=== PATIENT | male | born 1995 | race American Indian/Alaskan Native ===

== ENCOUNTER 2017-06-21 05:59 | Emergency (ER) | payer OTHER ==
[2017-06-21] MEDS ORDERED: KEPPRA PO ONE (06:42)
[2017-06-21 07:18] LABS: Basophils % (Auto) 0.3 % (0.0-1.8); Eosinophils % (Auto) 0.3 % (0.0-4.3); Hematocrit 43.1 % (35.5-45.6); Hemoglobin 14.7 gm/dl (11.8-15.2); Mean Corpuscular HGB Conc 34 % (32-34); Mean Corpuscular Hemoglobin 31 pg (28-32); Mean Corpuscular Volume 91 fl (84-94); Platelet Count 184 K/mm3 (140-440); Red Blood Count 4.75 M/mm3 (3.65-5.03); Red Cell Distribution Width 12.8 % (13.2-15.2); White Blood Count 6.5 K/mm3 (4.5-11.0)
[2017-06-21 07:32] LABS: Urine Drugs of Abuse Note Disclamer
[2017-06-21 07:36] LABS: Anion Gap 20 mmol/L; BUN/Creatinine Ratio 14; Blood Urea Nitrogen 15 mg/dL (9-20); Carbon Dioxide 25 mmol/L (22-30); Chloride 100.3 mmol/L (98-107); Glucose 93 mg/dL (75-100); Potassium 3.8 mmol/L (3.6-5.0); Sodium 141 mmol/L (137-145)
[2017-06-21 07:44] LABS: Bilirubin,Urine NEG (Negative); Blood,Urine SM (Negative); Ketones,Urine NEG (Negative); Leukocyte Esterase,Urine NEG (Negative); Mucus,Urine FEW /HPF; Nitrite,Urine NEG (Negative); Sperm,Urine FEW /HPF (NP); Urobilinogen,Urine < 2.0 mg/dL (<2.0); WBC,Urine < 1.0 /HPF (0.0-6.0)
--- NOTE | 2017-06-21 07:50 | Emergency Department Report ---
ED General Adult HPI - General Chief complaint: Seizure Stated complaint: SEIZURE Time Seen by Provider: 06/21/17 06:24 Source: patient, EMS Mode of arrival: Stretcher Limitations: No Limitations - History of Present Illness Initial comments: Patient had a single witnessed generalized seizure at home. He states he did not injure himself. He is really back to his baseline now. He presents with a bottle of Keppra. He states he just hasn't been taking it very well. He states he has about 7 left. He has no other complaints at this time. -: minutes(s) Severity scale (0 -10): 0 Consistency: now resolved Improves with: none Worsens with: none Associated Symptoms: denies other symptoms Treatments Prior to Arrival: none - Related Data Previous Rx's Medication Instructions Recorded Last Taken Type levETIRAcetam [Keppra] 500 mg PO BID #60 tablet 06/21/17 Unknown Rx Allergies Allergy/AdvReac Type Severity Reaction Status Date / Time No Known Allergies Allergy Unverified 06/21/17 06:28 ED Review of Systems ROS: Stated complaint: SEIZURE Other details as noted in HPI Constitutional: denies: chills, fever Eyes: denies: eye pain, eye discharge, vision change ENT: denies: ear pain, throat pain Respiratory: denies: cough, shortness of breath, wheezing Cardiovascular: denies: chest pain, palpitations Endocrine: no symptoms reported Gastrointestinal: denies: abdominal pain, nausea, diarrhea Genitourinary: denies: urgency, dysuria Musculoskeletal: denies: back pain, joint swelling, arthralgia Skin: denies: rash, lesions Neurological: as per HPI. denies: headache, weakness, paresthesias Psychiatric: denies: anxiety, depression Hematological/Lymphatic: denies: easy bleeding, easy bruising ED Past Medical Hx - Past Medical History Hx Seizures: Yes - Surgical History Past Surgical History?: No - Social History Smoking Status: Current Every Day Smoker Substance Use Type: Marijuana - Medications Home Medications: Home Medications Medication Instructions Recorded Confirmed Last Taken Type levETIRAcetam [Keppra] 500 mg PO BID #60 tablet 06/21/17 Unknown Rx ED Physical Exam - General Limitations: No Limitations General appearance: alert, in no apparent distress - Head Head exam: Present: atraumatic, normocephalic - Eye Eye exam: Present: normal appearance, PERRL, EOMI. Absent: scleral icterus - ENT ENT exam: Present: mucous membranes moist, other (superficial tongue abrasion) - Neck Neck exam: Present: normal inspection - Respiratory Respiratory exam: Present: normal lung sounds bilaterally. Absent: respiratory distress - Cardiovascular Cardiovascular Exam: Present: regular rate, normal rhythm. Absent: systolic murmur, diastolic murmur, rubs, gallop - GI/Abdominal GI/Abdominal exam: Present: soft, normal bowel sounds. Absent: distended, tenderness, guarding, rebound, rigid - Rectal Rectal exam: Present: deferred - Extremities Exam Extremities exam: Present: normal inspection - Back Exam Back exam: Present: normal inspection - Neurological Exam Neurological exam: Present: alert, oriented X3, CN II-XII intact. Absent: motor sensory deficit - Psychiatric Psychiatric exam: Present: normal affect, normal mood - Skin Skin exam: Present: warm, dry, intact, normal color. Absent: rash ED Course Vital Signs 06/21/17 06/21/17 06/21/17 06:06 06:10 06:14 Temperature 98.5 F Pulse Rate 81 86 Respiratory 12 20 Rate Blood Pressure 118/60 118/60 Blood Pressure [Right] O2 Sat by Pulse 97 98 98 Oximetry 06/21/17 06/21/17 06/21/17 06:15 06:20 06:26 Temperature 98.5 F Pulse Rate 80 91 H 69 Respiratory 14 13 23 Rate Blood Pressure 112/55 101/65 112/55 Blood Pressure 118/60 [Right] O2 Sat by Pulse 96 98 96 Oximetry 06/21/17 06/21/17 06/21/17 06:30 06:36 06:40 Temperature Pulse Rate 85 72 67 Respiratory 18 21 21 Rate Blood Pressure 103/64 103/64 103/64 Blood Pressure [Right] O2 Sat by Pulse 97 96 96 Oximetry 06/21/17 06/21/17 06/21/17 06:45 06:50 06:53 Temperature Pulse Rate 66 89 Respiratory 21 12 9 L Rate Blood Pressure 116/54 116/54 Blood Pressure [Right] O2 Sat by Pulse 94 99 97 Oximetry ED Medical Decision Making - Lab Data Result diagrams: 06/21/17 06:59 06/21/17 06:59 Laboratory Results - last 24 hr 06/21/17 06/21/17 06/21/17 06:59 06:59 07:28 WBC 6.5 RBC 4.75 Hgb 14.7 Hct 43.1 MCV 91 MCH 31 MCHC 34 RDW 12.8 L Plt Count 184 Lymph % (Auto) 19.7 [place] % (Auto) 11.3 H Eos % (Auto) 0.3 Baso % (Auto) 0.3 Lymph # 1.3 [place] # 0.7 Eos # 0.0 Baso # 0.0 Seg Neutrophils % 68.4 Seg Neutrophils # 4.5 Sodium 141 Potassium 3.8 Chloride 100.3 Carbon Dioxide 25 Anion Gap 20 BUN 15 Creatinine 1.1 Estimated GFR > 60 BUN/Creatinine Ratio 14 Glucose 93 Calcium 9.0 Urine Color Yellow Urine Turbidity Clear Urine pH 6.0 Ur Specific [place] 1.021 Urine Protein 100 mg/dl Urine Glucose (UA) Neg Urine Ketones Neg Urine Blood Sm Urine Nitrite Neg Urine Bilirubin Neg Urine Urobilinogen < 2.0 Ur Leukocyte Esterase Neg Urine WBC (Auto) < 1.0 Urine RBC (Auto) 3.0 Hyaline Casts 1 Urine Mucus Few Urine Sperm Few Critical care attestation.: If time is entered above; I have spent that time in minutes in the direct care of this critically ill patient, excluding procedure time. ED Disposition Clinical Impression: Seizure, Seizure disorder Disposition: DC-01 TO HOME OR SELFCARE Is pt being admited?: No Does the pt Need Aspirin: No Condition: Stable Instructions: Epilepsy (ED) Additional Instructions: Follow-up with neurology physician or clinic. Rx Keppra or return any acute change or problems. Do not drive until you are seizure-free for the appropriate. Ankle cleared by a neurologist or your primary care physician. Prescriptions: levETIRAcetam [Keppra] 500 mg PO BID #60 tablet Referrals: PRIMARY MD ESTELITA [Primary Care Provider] - 3-5 Days [facility] [Provider Group] - 3-5 Days Time of Disposition: 07:50
[2017-06-21 08:22] VITALS: BP 108/70
== END 2017-06-21 08:23 | disposition home or self-care (01) ==
LOC: ED 05:59
DX: G40.909 Epilepsy, unspecified, not intractable, without status epilepticus (principal); F17.200 Nicotine dependence, unspecified, uncomplicated; F12.10 Cannabis abuse, uncomplicated
CPT/HCPCS: 36415; 80048; 80307; 81001; 85025; 99284

== ENCOUNTER 2017-08-25 07:45 | Emergency (ER) | payer SELFPAY ==
[2017-08-25 08:05] VITALS: BP 126/88
== END 2017-08-25 08:16 | disposition left against medical advice (07) ==
LOC: ED 07:45
DX: R56.9 Unspecified convulsions (principal); Z53.21 Procedure and treatment not carried out due to patient leaving prior to being seen by health care provider

== ENCOUNTER 2017-09-21 09:32 | Emergency (ER) | payer OTHER ==
[2017-09-21] MEDS ORDERED: KEPPRA 1,000 MG/NS 0.75% 100ML 1,000 MG/100 ML BAG IV ONE (09:59)
[2017-09-21 10:08] LABS: Hematocrit 43.6 % (35.5-45.6); Hemoglobin 14.5 gm/dl (11.8-15.2); Mean Corpuscular HGB Conc 33 % (32-34); Mean Corpuscular Hemoglobin 31 pg (28-32); Mean Corpuscular Volume 92 fl (84-94); Platelet Count 229 K/mm3 (140-440); Red Blood Count 4.73 M/mm3 (3.65-5.03); Red Cell Distribution Width 13.7 % (13.2-15.2)
[2017-09-21 10:58] LABS: BUN/Creatinine Ratio 12; Blood Urea Nitrogen 14 mg/dL (9-20); Calcium 9.2 mg/dL (8.4-10.2); Hemolysis Index 19
--- NOTE | 2017-09-21 11:03 | Emergency Department Report ---
ED General Adult HPI - General Chief complaint: Seizure Stated complaint: SEIZURE Time Seen by Provider: 09/21/17 09:58 Source: patient, family, EMS Mode of arrival: Stretcher Limitations: No Limitations - History of Present Illness Initial comments: The third recent visit for medical noncompliance with his Keppra. Patient states that he did not injure himself. Paramedics tell me that they gave him Zofran because class he vomited. However, he did not appear to have aspirated. He does not complain of nausea now. He has no shortness of breath and no cough. Patient states he is last seizure was in August and that he ran out of Her and then as well. He does not follow-up with anyone. I did see him in June when he presented with a large bottle of Keppra which she was simply noncompliant in taking for a seizure - Related Data Previous Rx's Medication Instructions Recorded Last Taken Type levETIRAcetam [Keppra TAB] 500 mg PO BID #60 tablet 09/21/17 Unknown Rx levETIRAcetam [Keppra] 500 mg PO BID #60 tablet 09/21/17 Unknown Rx Allergies Allergy/AdvReac Type Severity Reaction Status Date / Time No Known Allergies Allergy Unverified 06/21/17 06:28 ED Review of Systems ROS: Stated complaint: SEIZURE Other details as noted in HPI Constitutional: denies: chills, fever Eyes: denies: eye pain, eye discharge, vision change ENT: denies: ear pain, throat pain Respiratory: denies: cough, shortness of breath, wheezing Cardiovascular: denies: chest pain, palpitations Endocrine: no symptoms reported Gastrointestinal: denies: abdominal pain, nausea, diarrhea Genitourinary: denies: urgency, dysuria Musculoskeletal: denies: back pain, joint swelling, arthralgia Skin: denies: rash, lesions Neurological: as per HPI. denies: headache, weakness, paresthesias Psychiatric: denies: anxiety, depression Hematological/Lymphatic: denies: easy bleeding, easy bruising ED Past Medical Hx - Past Medical History Previous Medical History?: Yes Hx Seizures: Yes - Surgical History Past Surgical History?: No - Social History Smoking Status: Current Every Day Smoker Substance Use Type: None - Medications Home Medications: Home Medications Medication Instructions Recorded Confirmed Last Taken Type levETIRAcetam [Keppra TAB] 500 mg PO BID #60 tablet 09/21/17 Unknown Rx levETIRAcetam [Keppra] 500 mg PO BID #60 tablet 09/21/17 Unknown Rx ED Physical Exam - General Limitations: No Limitations General appearance: alert, in no apparent distress - Head Head exam: Present: atraumatic, normocephalic - Eye Eye exam: Present: normal appearance. Absent: scleral icterus - ENT ENT exam: Present: mucous membranes moist, other (superficial tongue abrasion) - Neck Neck exam: Present: normal inspection. Absent: tenderness, meningismus - Respiratory Respiratory exam: Present: normal lung sounds bilaterally. Absent: respiratory distress - Cardiovascular Cardiovascular Exam: Present: regular rate, normal rhythm. Absent: systolic murmur, diastolic murmur, rubs, gallop - GI/Abdominal GI/Abdominal exam: Present: soft, normal bowel sounds. Absent: distended, tenderness, guarding, rebound, rigid - Rectal Rectal exam: Present: deferred - Extremities Exam Extremities exam: Present: normal inspection - Back Exam Back exam: Present: normal inspection - Neurological Exam Neurological exam: Present: alert, oriented X3, CN II-XII intact. Absent: motor sensory deficit - Psychiatric Psychiatric exam: Present: normal affect, normal mood - Skin Skin exam: Present: warm, dry, intact, normal color. Absent: rash ED Course Vital Signs 09/21/17 09:42 Temperature 97.6 F Pulse Rate 65 Respiratory 16 Rate Blood Pressure 113/47 O2 Sat by Pulse 96 Oximetry - Reevaluation(s) Reevaluation #1: IV Keppra observation and disposition. Patient states that he will follow up from now. 09/21/17 11:01 ED Medical Decision Making - Lab Data Result diagrams: 09/21/17 10:00 09/21/17 10:00 Laboratory Results - last 24 hr 09/21/17 09/21/17 10:00 10:00 WBC 7.9 RBC 4.73 Hgb 14.5 Hct 43.6 MCV 92 MCH 31 MCHC 33 RDW 13.7 Plt Count 229 Sodium 137 Potassium 4.6 Chloride 98.2 Carbon Dioxide 20 L Anion Gap 23 BUN 14 Creatinine 1.2 Estimated GFR > 60 BUN/Creatinine Ratio 12 Glucose 142 H Calcium 9.2 Critical care attestation.: If time is entered above; I have spent that time in minutes in the direct care of this critically ill patient, excluding procedure time. ED Disposition Clinical Impression: Seizure, History of seizure disorder, Medical non-compliance Disposition: DC-01 TO HOME OR SELFCARE Is pt being admited?: No Does the pt Need Aspirin: No Condition: Stable Instructions: Epilepsy (ED) Additional Instructions: Do not drive or operate machinery. Follow up care may be obtained at this outside medical clinic or local neurologist. Prescriptions: levETIRAcetam [Keppra] 500 mg PO BID #60 tablet levETIRAcetam [Keppra TAB] 500 mg PO BID #60 tablet Referrals: PRIMARY CAREMD [Primary Care Provider] - 3-5 Days BETTY AVILA MD [Staff Physician] - 3-5 Days [facility] [Provider Group] - 3-5 Days
[2017-09-21 12:37] VITALS: BP 134/87
== END 2017-09-21 12:39 | disposition home or self-care (01) ==
LOC: ED 09:32
DX: G40.909 Epilepsy, unspecified, not intractable, without status epilepticus (principal); F17.200 Nicotine dependence, unspecified, uncomplicated
CPT/HCPCS: 36415; 80048; 82962; 85027; 96365; 99284; J1953

== ENCOUNTER 2017-11-03 11:18 | Emergency (ER) | payer OTHER ==
[2017-11-03 11:28] VITALS: BP 127/76
[2017-11-03] MEDS ORDERED: KEPPRA PO ONE (14:43)
--- NOTE | 2017-11-03 14:48 | Emergency Department Report ---
ED General Adult HPI - General Chief complaint: Medical Clearance Stated complaint: SIEZURES Time Seen by Provider: 11/03/17 14:43 Source: patient Mode of arrival: Ambulatory Limitations: No Limitations - History of Present Illness Initial comments: Patient presents for medication refill. Reports that he has not taken his Keppra medication in 3 days. Reports history of epilepsy. Denies seizure. -: days(s) (3) Consistency: intermittent Associated Symptoms: denies other symptoms - Related Data Previous Rx's Medication Instructions Recorded Last Taken Type levETIRAcetam [Keppra] 500 mg PO BID #60 tablet 09/21/17 Unknown Rx levETIRAcetam [Keppra TAB] 500 mg PO BID #60 tablet 11/03/17 Unknown Rx Allergies Allergy/AdvReac Type Severity Reaction Status Date / Time No Known Allergies Allergy Verified 11/03/17 11:26 ED Review of Systems ROS: Stated complaint: SIEZURES Other details as noted in HPI ED Past Medical Hx - Past Medical History Hx Seizures: Yes - Social History Smoking Status: Current Every Day Smoker Substance Use Type: None - Medications Home Medications: Home Medications Medication Instructions Recorded Confirmed Last Taken Type levETIRAcetam [Keppra] 500 mg PO BID #60 tablet 09/21/17 Unknown Rx levETIRAcetam [Keppra TAB] 500 mg PO BID #60 tablet 11/03/17 Unknown Rx ED Physical Exam - General Limitations: No Limitations - Other Other exam information: GENERAL: Patient in no acute distress HEAD: Normocephalic, atraumatic EYES: PERRLA, EOM intact, no scleral icterus, visual colon and acuity wnl HEART: Regular rate and rhythm, no murmur, S1-S2 are auscultated, pulses are symmetric LUNGS: bilateral breath sounds. No wheezing, rales, rhonchi ABDOMEN: Normal bowel sounds, no tenderness, no rebound, no guarding, no masses , no CVA tenderness MUSCULOSKELETAL: Normal joint range of motion, no redness, no swelling, no tenderness NEUROLOGIC: GCS 15, Alert and Oriented x3, Cranial nerves intact, normal sensation, normal strength, normal gait PSYCHIATRIC: No homicidal or suicidal ideation, no hallucinations SKIN: Skin is warm and dry, no wounds, no rashes ED Course Vital Signs 11/03/17 11:26 Temperature 98.7 F Pulse Rate 58 L Respiratory 16 Rate Blood Pressure 127/76 O2 Sat by Pulse 100 Oximetry ED Medical Decision Making - Medical Decision Making Patient comfortable. Plan discharge with outpatient follow up. Patient agrees with plan and will return if symptoms worsen. Critical care attestation.: If time is entered above; I have spent that time in minutes in the direct care of this critically ill patient, excluding procedure time. ED Disposition Clinical Impression: Medication refill Disposition: DC- TO HOME OR SELFCARE Is pt being admited?: No Condition: Stable Instructions: Epilepsy (ED) Prescriptions: levETIRAcetam [Keppra TAB] 500 mg PO BID #60 tablet Referrals: [facility] [Outside] - 2-3 Days [facility] [Outside] - 2-3 Days KIERA MILTON MD [Staff Physician] - 2-3 Days Time of Disposition: 14:48
== END 2017-11-03 15:36 | disposition home or self-care (01) ==
LOC: ED 11:18
DX: Z76.0 Encounter for issue of repeat prescription (principal); F17.200 Nicotine dependence, unspecified, uncomplicated; G40.909 Epilepsy, unspecified, not intractable, without status epilepticus
CPT/HCPCS: 99282

== ENCOUNTER 2017-12-07 20:39 | Emergency (ER) | payer SELFPAY ==
[2017-12-07 21:08] VITALS: BP 126/42
[2017-12-07] MEDS ORDERED: KEPPRA PO ONE ×2 (21:40→21:43)
[2017-12-07] MEDS ORDERED: BENADRYL IV ONE (22:38)
[2017-12-07] MEDS ORDERED: REGLAN IV ONE (22:38)
[2017-12-07] MEDS ORDERED: TORADOL IV ONE (22:38)
--- NOTE | 2017-12-07 22:43 | Emergency Department Report ---
ED Headache HPI - General Chief Complaint: Headache Stated Complaint: HEADACHE Time Seen by Provider: 12/07/17 22:29 - History of Present Illness Initial Comments: 22-year-old -[place] male with a past medical history seizures that should be on Keppra but has been off of it for the last 5 days comes in for headache 8 out of 10 2 days. Patient admits to nausea no vomiting positive photosensitivity no vision problems reports she's had hot flashes. He reports that he was diagnosed with seizures 02/17/2016 and was in a coma for a few days. He reports that he had a full workup and they do not know the reason why. Patient reports that he does not have a neurologist or primary care provider and comes here often to get his Keppra refill. Timing/Duration: other (2 days) Quality: moderate Associated Symptoms: nausea/vomiting Allergies/Adverse Reactions: Allergies No Known Allergies Allergy (Verified 11/03/17 11:26) Home Medications: Ambulatory Orders levETIRAcetam [Keppra TAB] 500 mg PO BID #60 tablet 11/03/17 levETIRAcetam [Keppra] 500 mg PO BID #60 tablet 12/07/17 ED Review of Systems ROS: Stated complaint: HEADACHE Other details as noted in HPI Constitutional: denies: chills, fever Eyes: denies: eye pain, eye discharge, vision change ENT: denies: ear pain, throat pain Respiratory: denies: cough, shortness of breath, wheezing Cardiovascular: denies: chest pain, palpitations Gastrointestinal: nausea. denies: vomiting Musculoskeletal: denies: back pain, joint swelling, arthralgia Neurological: headache Psychiatric: denies: anxiety, depression Hematological/Lymphatic: denies: easy bleeding, easy bruising ED Past Medical Hx - Past Medical History Previous Medical History?: Yes Hx Seizures: Yes Additional medical history: Takes Keppra - Social History Smoking Status: Light Tobacco Smoker - Medications Home Medications: Home Medications Medication Instructions Recorded Confirmed Last Taken Type levETIRAcetam [Keppra TAB] 500 mg PO BID #60 tablet 11/03/17 Unknown Rx levETIRAcetam [Keppra] 500 mg PO BID #60 tablet 12/07/17 Unknown Rx ED Physical Exam - General Limitations: No Limitations - Respiratory Respiratory exam: Present: normal lung sounds bilaterally. Absent: respiratory distress - Cardiovascular Cardiovascular Exam: Present: regular rate, normal rhythm. Absent: systolic murmur, diastolic murmur, rubs, gallop - Extremities Exam Extremities exam: Present: normal inspection - Back Exam Back exam: Present: normal inspection - Expanded Neurological Exam Expanded Cranial nerves: EOM's Intact: Normal, Gag Reflex: Normal, Tongue Deviation: Normal, Nystagmus: Normal, Facial Sensation: Normal, Facial Palsy with Forehead Movement: Normal, Facial Palsy without Forehead Movement: Normal Cerebellar function: Finger to Nose: Normal, Heel to Higgins: Normal, Romberg: Normal Upper motor neuron: Billy Neglect: Normal, Pronator Drift: Normal, Sensory Extinction: Normal Sensory exam: Upper Extremity Light Touch: Normal, Upper Extremity Pin Prick: Normal, Upper Extremity Temperature: Normal, UE 2 Point Discrimination: Normal, Lower Extremity Light Touch: Normal, Lower Extremity Pin Prick: Normal Motor strength exam: RUE: 5, LUE: 5, RLE: 5, LLE: 5 Best Eye Response ([place]): (4) open spontaneously Best Motor Response ([place]): (6) obeys commands Best Verbal Response ([place]): (5) oriented Nieves Total: 15 - Psychiatric Psychiatric exam: Present: normal affect, normal mood - Skin Skin exam: Present: warm, dry, intact, normal color. Absent: rash ED Course Vital Signs 12/07/17 12/07/17 20:43 21:32 Temperature 98.9 F 98.9 F Pulse Rate 64 62 Respiratory 18 18 Rate Blood Pressure 126/42 126/42 O2 Sat by Pulse 98 97 Oximetry ED Medical Decision Making - Medical Decision Making Patient is seen by this provider and fast track. I discussed the patient we'll give him a IV insertion to get Benadryl Phenergan and Toradol. Patient verbalized understanding. Lalo instrument worker comes to me reports that patient does not want IV medications since he's had Keppra 1000mg in triage he says his headache has improved. I would discharge patient on a refill of his Keppra 500 mg by mouth twice a day and refer him to immediately clinic. Critical care attestation.: If time is entered above; I have spent that time in minutes in the direct care of this critically ill patient, excluding procedure time. ED Disposition Clinical Impression: Medication refill Headache Qualifiers: Headache type: unspecified Headache chronicity pattern: acute headache Intractability: intractable Qualified Code(s): R51 - Headache Disposition: DC-01 TO HOME OR SELFCARE Is pt being admited?: No Does the pt Need Aspirin: No Condition: Stable Additional Instructions: Please follow up with one of the providers below. The emergency room is not the best place for managing her seizures. Prescriptions: levETIRAcetam [Keppra] 500 mg PO BID #60 tablet Referrals: PRIMARY CARE, [Primary Care Provider] - 3-5 Days [facility] [Provider Group] - 3-5 Days [facility] [Outside] - 3-5 Days [facility] [Outside] - 3-5 Days [facility] [Outside] - 3-5 Days Forms: Work/School Release Form(ED)
== END 2017-12-07 22:59 | disposition home or self-care (01) ==
LOC: ED 20:39
DX: R51 Headache (principal); R11.2 Nausea with vomiting, unspecified; F17.200 Nicotine dependence, unspecified, uncomplicated
CPT/HCPCS: 99283; J1200; J1885; J2765

== ENCOUNTER 2017-12-26 11:15 | Emergency (ER) | payer SELFPAY ==
[2017-12-26 11:54] VITALS: BP 131/56
--- NOTE | 2017-12-26 12:01 | Emergency Department Report ---
HPI - General Chief Complaint: Seizure Time Seen by Provider: 12/26/17 11:55 - HPI HPI: 22-year-old male presents to the emergency Department for a medication refill of his seizure medication, Keppra, which he takes at 1000 mg twice daily. He says he ran out sometime in the middle of last week. There has been no recent seizure activity but he is just trying to get the medication refilled since that he does not have any seizures. He has no other complaints at this time. He does not have a primary care physician. ED Past Medical Hx - Past Medical History Hx Seizures: Yes Additional medical history: Takes Keppra - Surgical History Past Surgical History?: No - Social History Smoking Status: Current Every Day Smoker - Medications Home Medications: Home Medications Medication Instructions Recorded Confirmed Last Taken Type levETIRAcetam [Keppra TAB] 500 mg PO BID #60 tablet 11/03/17 Unknown Rx levETIRAcetam [Keppra] 500 mg PO BID #60 tablet 12/07/17 Unknown Rx levETIRAcetam [Keppra TAB] 1,000 mg PO BID #60 tab 12/26/17 Unknown Rx ED Review of Systems ROS: Stated complaint: SEIZURES Other details as noted in HPI Comment: All other systems reviewed and negative Constitutional: denies: chills, fever Eyes: denies: eye pain, eye discharge, vision change ENT: denies: ear pain, throat pain Respiratory: denies: cough, shortness of breath Cardiovascular: denies: chest pain, palpitations Gastrointestinal: denies: abdominal pain, nausea Genitourinary: denies: urgency, dysuria Musculoskeletal: denies: back pain, joint swelling, arthralgia Skin: denies: rash, lesions Neurological: denies: headache, weakness Physical Exam - Physical Exam Vital Signs: Vital Signs 12/26/17 11:46 Temperature 97.9 F Pulse Rate 57 L Respiratory 18 Rate Blood Pressure 131/56 ED Course Vital Signs 12/26/17 11:46 Temperature 97.9 F Pulse Rate 57 L Respiratory 18 Rate Blood Pressure 131/56 Critical care attestation.: If time is entered above; I have spent that time in minutes in the direct care of this critically ill patient, excluding procedure time. ED Disposition Clinical Impression: Seizure disorder, Medication refill Disposition: TO HOME OR SELFCARE Is pt being admited?: No Condition: Stable Instructions: Levetiracetam (By mouth), Epilepsy (ED) Additional Instructions: Please follow up with a primary care physician or primary care clinic as soon as possible. Return to the emergency department with any concerns or with any acute distress. Prescriptions: levETIRAcetam [Keppra TAB] 1,000 mg PO BID #60 tab [facility] - [facility]5 Days [facility] [Outside] - 3-5 Days [facility] [Outside] - 3-5 Days Time of Disposition: 12:01
== END 2017-12-26 12:14 | disposition home or self-care (01) ==
LOC: ED 11:15
DX: G40.909 Epilepsy, unspecified, not intractable, without status epilepticus (principal); F17.200 Nicotine dependence, unspecified, uncomplicated; Z76.0 Encounter for issue of repeat prescription
CPT/HCPCS: 99282

== ENCOUNTER 2018-02-22 09:28 | Emergency (ER) | payer SELFPAY ==
[2018-02-22 09:39] VITALS: BP 125/77
[2018-02-22] MEDS ORDERED: KEPPRA PO ONE (10:29)
[2018-02-22] MEDS ORDERED: MOTRIN PO ONE (10:29)
--- NOTE | 2018-02-22 10:36 | Emergency Department Report ---
ED General Adult HPI - General Chief complaint: Headache Stated complaint: MEDICATION/HEAD ACHE Time Seen by Provider: 02/22/18 10:23 Source: patient Mode of arrival: Ambulatory Limitations: No Limitations - History of Present Illness Initial comments: Patient is a 22-year-old black male past medical history of seizures who has been out of his Keppra for the last 2 days. Patient has not seen a neurologist recently for seizures. Patient's last refill Keppra was from the emergency department. Patient states he has a seizure 3 days ago. Patient has had some mild headache since. Patient states he does get headaches after seizures. Patient denies any neurological deficits at this time he also denies any nausea vomiting diarrhea or neck stiffness. Patient states headache is probably a 6 out of 10 in severity. - Related Data Previous Rx's Medication Instructions Recorded Last Taken Type levETIRAcetam [Keppra] 500 mg PO BID #60 tablet 12/07/17 Unknown Rx levETIRAcetam [Keppra TAB] 1,000 mg PO BID #60 tab 12/26/17 Unknown Rx levETIRAcetam [Keppra TAB] 500 mg PO BID #60 tablet 02/22/18 Unknown Rx Allergies Allergy/AdvReac Type Severity Reaction Status Date / Time No Known Allergies Allergy Verified 02/22/18 09:36 ED Review of Systems ROS: Stated complaint: MEDICATION/HEAD ACHE Other details as noted in HPI Comment: All other systems reviewed and negative ED Past Medical Hx - Past Medical History Hx Seizures: Yes Additional medical history: Takes Keppra - Social History Smoking Status: Current Every Day Smoker Substance Use Type: Marijuana - Medications Home Medications: Home Medications Medication Instructions Recorded Confirmed Last Taken Type levETIRAcetam [Keppra] 500 mg PO BID #60 tablet 12/07/17 Unknown Rx levETIRAcetam [Keppra TAB] 1,000 mg PO BID #60 tab 12/26/17 Unknown Rx levETIRAcetam [Keppra TAB] 500 mg PO BID #60 tablet 02/22/18 Unknown Rx ED Physical Exam - General Limitations: No Limitations General appearance: alert, in no apparent distress - Head Head exam: Present: atraumatic, normocephalic - Eye Eye exam: Present: normal appearance - ENT ENT exam: Present: mucous membranes moist - Neck Neck exam: Present: normal inspection - Respiratory Respiratory exam: Present: normal lung sounds bilaterally. Absent: respiratory distress, wheezes, rales, rhonchi - Cardiovascular Cardiovascular Exam: Present: regular rate, normal rhythm. Absent: systolic murmur, diastolic murmur, rubs, gallop - GI/Abdominal GI/Abdominal exam: Present: soft, normal bowel sounds. Absent: distended, tenderness, guarding - Rectal Rectal exam: Present: deferred - Extremities Exam Extremities exam: Present: normal inspection - Back Exam Back exam: Present: normal inspection - Neurological Exam Neurological exam: Present: alert, oriented X3, CN II-XII intact, normal gait. Absent: motor sensory deficit - Psychiatric Psychiatric exam: Present: normal affect, normal mood - Skin Skin exam: Present: warm, dry, intact, normal color. Absent: rash ED Course Vital Signs 02/22/18 09:36 Temperature 98.7 F Pulse Rate 55 L Respiratory 18 Rate Blood Pressure 125/77 O2 Sat by Pulse 99 Oximetry ED Medical Decision Making - Medical Decision Making Because the patient does have recent active seizures refill be done on the patient will be loaded with Keppra patient was given meds for symptomatic relief from the headache will be discharged home. Critical care attestation.: If time is entered above; I have spent that time in minutes in the direct care of this critically ill patient, excluding procedure time. ED Disposition Clinical Impression: Seizure, Medication refill Disposition: -01 TO HOME OR SELFCARE Is pt being admited?: No Does the pt Need Aspirin: No Condition: Stable Instructions: Epilepsy (ED) Additional Instructions: Several neurologists names have been supplied to you please follow up with one of the listed neurologist. Prescriptions: levETIRAcetam [Keppra TAB] 500 mg PO BID #60 tablet Referrals: EDDI VALDOVINOS MD [Referring] - 3-5 Days YASMINE SHERIDAN MD [Referring] - 3-5 Days KEL PA MD [Staff Physician] - 3-5 Days FERNANDO EDWARD MD [Referring] - 3-5 Days Time of Disposition: 10:36
== END 2018-02-22 10:54 | disposition home or self-care (01) ==
LOC: ED 09:28
DX: R56.9 Unspecified convulsions (principal); Z76.0 Encounter for issue of repeat prescription; F17.200 Nicotine dependence, unspecified, uncomplicated; F12.10 Cannabis abuse, uncomplicated
CPT/HCPCS: 99282

== ENCOUNTER 2018-02-25 07:20 | Emergency (ER) | payer SELFPAY ==
[2018-02-25] MEDS ORDERED: KEPPRA 1,000 MG/NS 0.75% 100ML 1,000 MG/100 ML BAG IV ONE ×2 (08:19→08:35)
--- NOTE | 2018-02-25 08:49 | Emergency Department Report ---
ED Seizure HPI - General Chief Complaint: Seizure Stated Complaint: SEIZURE Time Seen by Provider: 02/25/18 08:40 Source: patient, EMS Mode of arrival: Stretcher Limitations: No Limitations - History of Present Illness Initial Comments: 22-year-old male presents emergency with seizure-like activity. Patient states he is noncompliant with his medications due to not being able to afford his. Patient brought in by EMS. Patient this time is anal 4. Patient denies chest pain. Patient denies headache. Patient states his seizure started February 2016 and he has been taking Keppra since then and his seizures have been controlled except for when he misses his meds. Patient denies shortness of breath and chest pain. Patient denies abdominal pain. Patient denies headache. Patient denies neck pain. Patient denies trauma. Patient states she did not have a postictal state. Family at bedside and witnessed seizure and denies trauma. Patient still has the prescription from his previous visit here that he has not filled due to cost. MD Complaint: seizure -: Sudden Description of Episode: loss of consciousness Witnessed:: Yes Trauma: No Seizure History: known seizure disorder, history of non-compliance Place: home Possible Precipitating Event: medication Associated Symptoms: denies other symptoms. denies: chest pain, confusion, cough, diaphoresis, fever/chills, loss of appetite, malaise, rash, shortness of breath, syncope, weakness, tongue injury, shoulder dislocation Treatments Prior to Arrival: none - Related Data Previous Rx's Medication Instructions Recorded Last Taken Type levETIRAcetam [Keppra] 500 mg PO BID #60 tablet 12/07/17 Unknown Rx levETIRAcetam [Keppra TAB] 1,000 mg PO BID #60 tab 12/26/17 Unknown Rx levETIRAcetam [Keppra TAB] 500 mg PO BID #60 tablet 02/22/18 Unknown Rx Allergies Allergy/AdvReac Type Severity Reaction Status Date / Time No Known Allergies Allergy Verified 02/22/18 09:36 ED Review of Systems ROS: Stated complaint: SEIZURE Other details as noted in HPI Constitutional: denies: chills, fever Eyes: denies: eye pain, eye discharge, vision change ENT: denies: ear pain, throat pain Respiratory: denies: cough, shortness of breath, wheezing Cardiovascular: denies: chest pain, palpitations Endocrine: no symptoms reported Gastrointestinal: denies: abdominal pain, nausea, diarrhea Genitourinary: denies: urgency, dysuria Musculoskeletal: denies: back pain, joint swelling, arthralgia Skin: denies: rash, lesions Neurological: denies: headache, weakness, paresthesias Psychiatric: denies: anxiety, depression Hematological/Lymphatic: denies: easy bleeding, easy bruising ED Past Medical Hx - Past Medical History Previous Medical History?: Yes Hx Seizures: Yes Additional medical history: Takes Keppra - Surgical History Past Surgical History?: No - Family History Family history: no significant - Social History Smoking Status: Current Every Day Smoker Substance Use Type: Alcohol - Medications Home Medications: Home Medications Medication Instructions Recorded Confirmed Last Taken Type levETIRAcetam [Keppra] 500 mg PO BID #60 tablet 12/07/17 Unknown Rx levETIRAcetam [Keppra TAB] 1,000 mg PO BID #60 tab 12/26/17 Unknown Rx levETIRAcetam [Keppra TAB] 500 mg PO BID #60 tablet 02/22/18 Unknown Rx ED Physical Exam - General Limitations: No Limitations General appearance: alert, in no apparent distress - Head Head exam: Present: atraumatic, normocephalic - Eye Eye exam: Present: normal appearance - ENT ENT exam: Present: mucous membranes moist - Neck Neck exam: Present: normal inspection - Respiratory Respiratory exam: Present: normal lung sounds bilaterally. Absent: respiratory distress - Cardiovascular Cardiovascular Exam: Present: regular rate, normal rhythm. Absent: systolic murmur, diastolic murmur, rubs, gallop - GI/Abdominal GI/Abdominal exam: Present: soft, normal bowel sounds - Rectal Rectal exam: Present: deferred - Extremities Exam Extremities exam: Present: normal inspection - Back Exam Back exam: Present: normal inspection - Neurological Exam Neurological exam: Present: alert, oriented X3 - Psychiatric Psychiatric exam: Present: normal affect, normal mood - Skin Skin exam: Present: warm, dry, intact, normal color. Absent: rash ED Course Vital Signs 02/25/18 02/25/18 02/25/18 08:23 09:41 09:49 Temperature 97.9 F Pulse Rate 88 53 L Respiratory 16 16 16 Rate Blood Pressure 133/82 Blood Pressure 112/64 [Left] O2 Sat by Pulse 97 100 100 Oximetry - Reevaluation(s) Reevaluation #1: Patient currently getting Her IV. We'll monitor patient and adjust treatment when necessary. Patient appears stable at this time. 02/25/18 08:48 Reevaluation #2: Patient states he feels good. Patient denies any physical complaints. Patient had his Keppra iv. patient is stable at this time. Patient has a prescription for Keppra from his previous ER visit and patient will states she will burr picker the medication. Patient encouraged to take medications as directed and be compliant with his medication regimen. Patient also encouraged to follow up with neurologist and primary care soon as possible 02/25/18 11:08 ED Medical Decision Making - Medical Decision Making Patient is a 22-year-old male with known seizure history presents to emergency room with seizure activity. Patient is stable at this moment. Patient was given a gram of Keppra and denies any seizure activity since having medications. Patient states he feels good and is ready to go home. Patient artery has a prescription of Keppra from his previous ER visit, patient encouraged to go to the pharmacy and burr picker the medication. - Differential Diagnosis seizure. Epilepsy. Noncompliance. Critical care attestation.: If time is entered above; I have spent that time in minutes in the direct care of this critically ill patient, excluding procedure time. ED Disposition Clinical Impression: Seizure, Noncompliance with medication regimen Disposition: DC-01 TO HOME OR SELFCARE Is pt being admited?: No Does the pt Need Aspirin: No Condition: Stable Instructions: Epilepsy (ED) Additional Instructions: Patient to follow-up with primary care in 3-5 days. Patient to start and take Keppra as directed. Patient to return to ER if condition worsens. Patient to increase water. Patient to not drive. Referrals: PRIMARY CARE, [Primary Care Provider] - 3-5 Days Time of Disposition: 11:11
[2018-02-25 09:44] VITALS: BP 112/64
== END 2018-02-25 11:30 | disposition home or self-care (01) ==
LOC: ED 07:20
DX: R56.9 Unspecified convulsions (principal); F17.200 Nicotine dependence, unspecified, uncomplicated
CPT/HCPCS: 96365; 99283; J1953

== ENCOUNTER 2018-11-04 10:59 | Emergency (ER) | payer OTHER ==
[2018-11-04 11:19] VITALS: BP 133/43
--- NOTE | 2018-11-04 11:24 | Emergency Department Report ---
ED Recheck HPI - General Chief Complaint: Recheck/Abnormal Lab/Rx Stated Complaint: MEDICATION REFILL Time Seen by Provider: 11/04/18 11:19 Source: patient Mode of arrival: Ambulatory Limitations: No Limitations - History of Present Illness Initial Comments: This is a 23-year-old male nontoxic well in appearance with no signs of distress presents to the ED for medication refill. Patient stated that he takes Keppra 1000 mg BID. Stated that he left his medication in [place]. Denies any fever, chills, headache, nausea, vomiting, chest pain or SOB. Denies any other complaints. Denies any allergies. MD Complaint: medication refill request Returns Today for: request for prescription Symptoms Since Prior Visit: no new symptoms Associated Symptoms: none. denies: fever, chills, chest pain, shortness of breath, rash, malaise, nasuea, abdominal pain - Related Data Previous Rx's Medication Instructions Recorded Last Taken Type levETIRAcetam [Keppra] 500 mg PO BID #60 tablet 12/07/17 Unknown Rx levETIRAcetam [Keppra TAB] 500 mg PO BID #60 tablet 02/22/18 Unknown Rx levETIRAcetam [Keppra TAB] 1,000 mg PO BID #60 tab 07/04/18 Unknown Rx levETIRAcetam [Keppra TAB] 1,000 mg PO BID #60 tab 11/04/18 Unknown Rx Allergies Allergy/AdvReac Type Severity Reaction Status Date / Time No Known Allergies Allergy Verified 02/22/18 09:36 ED Review of Systems ROS: Stated complaint: MEDICATION REFILL Other details as noted in HPI Constitutional: denies: chills, fever Eyes: denies: eye pain, eye discharge, vision change ENT: denies: ear pain, throat pain Respiratory: denies: cough, shortness of breath, wheezing Cardiovascular: denies: chest pain, palpitations Endocrine: no symptoms reported Gastrointestinal: denies: abdominal pain, nausea, diarrhea Genitourinary: denies: urgency, dysuria Musculoskeletal: denies: back pain, joint swelling, arthralgia Skin: denies: rash, lesions Neurological: denies: headache, weakness, paresthesias Psychiatric: denies: anxiety, depression Hematological/Lymphatic: denies: easy bleeding, easy bruising ED Past Medical Hx - Past Medical History Hx Seizures: Yes Additional medical history: Takes Keppra - Social History Smoking Status: Current Every Day Smoker Substance Use Type: Alcohol, Marijuana - Medications Home Medications: Home Medications Medication Instructions Recorded Confirmed Last Taken Type levETIRAcetam [Keppra] 500 mg PO BID #60 tablet 12/07/17 Unknown Rx levETIRAcetam [Keppra TAB] 500 mg PO BID #60 tablet 02/22/18 Unknown Rx levETIRAcetam [Keppra TAB] 1,000 mg PO BID #60 tab 07/04/18 Unknown Rx levETIRAcetam [Keppra TAB] 1,000 mg PO BID #60 tab 11/04/18 Unknown Rx ED Physical Exam - General Limitations: No Limitations General appearance: alert, in no apparent distress - Head Head exam: Present: atraumatic, normocephalic - Eye Eye exam: Present: normal appearance - ENT ENT exam: Present: mucous membranes moist - Neck Neck exam: Present: normal inspection - Respiratory Respiratory exam: Present: normal lung sounds bilaterally. Absent: respiratory distress - Cardiovascular Cardiovascular Exam: Present: regular rate, normal rhythm. Absent: systolic murmur, diastolic murmur, rubs, gallop - GI/Abdominal GI/Abdominal exam: Present: soft, normal bowel sounds - Rectal Rectal exam: Present: deferred - Extremities Exam Extremities exam: Present: normal inspection - Back Exam Back exam: Present: normal inspection - Neurological Exam Neurological exam: Present: alert, oriented X3 - Psychiatric Psychiatric exam: Present: normal affect, normal mood - Skin Skin exam: Present: warm, dry, intact, normal color. Absent: rash ED Course Vital Signs 11/04/18 11:17 Temperature 98.2 F Pulse Rate 53 L Respiratory 20 Rate Blood Pressure 133/43 O2 Sat by Pulse 99 Oximetry - Reevaluation(s) Reevaluation #1: 11/04/18 11:21 Patient is speaking in full sentences with no signs of distress noted. ED Recheck MDM - Medical Decision Making I will refill patients medication for SZ. Patient was instructed to Follow-up with a primary care/neurologist doctor in 3-5 days or if symptoms worsen and continue return to emergency room as soon as possible. At time of discharge, the patient does not seem toxic or ill in appearance. No acute signs of d istress noted. Patient agrees to discharge treatment plan of care. No further questions noted by the patient. Critical care attestation.: If time is entered above; I have spent that time in minutes in the direct care of this critically ill patient, excluding procedure time. ED Disposition Clinical Impression: Medication refill Disposition: DC-01 TO HOME OR SELFCARE Is pt being admited?: No Does the pt Need Aspirin: No Condition: Stable Instructions: Levetiracetam (By mouth) Additional Instructions: Follow-up with a primary care/neurologist doctor in 3-5 days or if symptoms worsen and continue return to emergency room as soon as possible. Prescriptions: levETIRAcetam [Keppra TAB] 1,000 mg PO BID #60 tab Referrals: PRIMARY CARE, [Referring] - 3-5 Days HUDSON BENAVIDES MD [Staff Physician] - 3-5 Days JARVIS SCHREIBER MD [Staff Physician] - 3-5 Days [facility] [Outside] - 3-[address] [facility] [Outside] - 3-5 Days
== END 2018-11-04 11:30 | disposition home or self-care (01) ==
LOC: ED 10:59
DX: R56.9 Unspecified convulsions (principal); Z76.0 Encounter for issue of repeat prescription; F17.200 Nicotine dependence, unspecified, uncomplicated; F12.10 Cannabis abuse, uncomplicated
CPT/HCPCS: 99281

== ENCOUNTER 2018-12-31 17:48 | Emergency (ER) | payer OTHER ==
[2018-12-31 17:53] VITALS: BP 120/48
--- NOTE | 2018-12-31 17:53 | Emergency Department Report ---
ED Recheck HPI - General Chief Complaint: Recheck/Abnormal Lab/Rx Stated Complaint: OUT OF MEDS Source: patient Mode of arrival: Ambulatory Limitations: No Limitations - History of Present Illness Initial Comments: 23 YO HERE FOR KEPPRA REFILL FIRST SZ 2015 ? ETIO ON KEPPRA BID NO SZ - Related Data Previous Rx's Medication Instructions Recorded Last Taken Type levETIRAcetam [Keppra TAB] 1,000 mg PO BID #60 tablet 12/31/18 Unknown Rx Allergies Allergy/AdvReac Type Severity Reaction Status Date / Time No Known Allergies Allergy Verified 12/31/18 17:49 ED Review of Systems ROS: Stated complaint: OUT OF MEDS Other details as noted in HPI Comment: All other systems reviewed and negative ED Past Medical Hx - Past Medical History Hx Seizures: Yes Additional medical history: Takes Keppra - Surgical History Past Surgical History?: No - Family History Family history: no significant - Social History Smoking Status: Current Every Day Smoker Substance Use Type: Alcohol, Marijuana - Medications Home Medications: Home Medications Medication Instructions Recorded Confirmed Last Taken Type levETIRAcetam [Keppra TAB] 1,000 mg PO BID #60 tablet 12/31/18 Unknown Rx ED Physical Exam - General Limitations: No Limitations General appearance: alert - Head Head exam: Present: normocephalic - Eye Eye exam: Present: normal appearance, PERRL - ENT ENT exam: Present: mucous membranes moist - Neck Neck exam: Present: normal inspection - Cardiovascular Cardiovascular Exam: Present: regular rate - Neurological Exam Neurological exam: Present: alert, oriented X3, CN II-XII intact, normal gait, reflexes normal - Psychiatric Psychiatric exam: Present: normal affect, normal mood ED Course Vital Signs 12/31/18 17:52 Temperature 98.3 F Pulse Rate 58 L Respiratory 16 Rate Blood Pressure 120/48 O2 Sat by Pulse 99 Oximetry ED Recheck MDM - Core Measures Measure Exclusions: not indicated - Differential Diagnosis Prescription Refill(s) - Medical Decision Making KEPPRA REFILL TRYING TO GET DISABILITY VSS NO DISTRESS NEURO INTACT DC HOME WITH PCP FOLLOW UP Vital Signs 12/31/18 17:52 Temperature 98.3 F Pulse Rate 58 L Respiratory 16 Rate Blood Pressure 120/48 O2 Sat by Pulse 99 Oximetry Critical care attestation.: If time is entered above; I have spent that time in minutes in the direct care of this critically ill patient, excluding procedure time. ED Disposition Clinical Impression: Medication refill Disposition: DC-01 TO HOME OR SELFCARE Is pt being admited?: No Does the pt Need Aspirin: No Condition: Stable Prescriptions: levETIRAcetam [Keppra TAB] 1,000 mg PO BID #60 tablet Referrals: KULDIP ANDERSON MD [Staff Physician] - 3-5 Days Time of Disposition: 17:54
== END 2018-12-31 18:26 | disposition home or self-care (01) ==
LOC: ED 17:48
DX: R56.9 Unspecified convulsions (principal); Z76.0 Encounter for issue of repeat prescription
CPT/HCPCS: 99282

== ENCOUNTER 2019-03-26 09:37 | Emergency (ER) | payer SELFPAY ==
[2019-03-26 09:49] VITALS: BP 130/60
--- NOTE | 2019-03-26 10:25 | Emergency Department Report ---
ED Recheck HPI - General Chief Complaint: Medical Clearance Stated Complaint: MED REFILL Time Seen by Provider: 03/26/19 10:04 Source: patient Mode of arrival: Ambulatory Limitations: No Limitations - History of Present Illness Initial Comments: Patient is a 23-year-old male who presents emergency room for medication refill. Patient reports that his daughter accidentally dumped out his medications and he does not have anymore. he states that he takes Keppra 1000 milligrams twice a day. he last took his Keppra 2 nights ago. States he has not had a seizure since October. pt states his neurologist in [place] use to prescribe his medications but he moved to [place] and does not have a primary care provider. Patient denies any other medical history or allergies to medications. - Related Data Previous Rx's Medication Instructions Recorded Last Taken Type levETIRAcetam [Keppra TAB] 1,000 mg PO BID #60 tablet 03/26/19 Unknown Rx Allergies Allergy/AdvReac Type Severity Reaction Status Date / Time No Known Allergies Allergy Verified 12/31/18 17:49 ED Review of Systems ROS: Stated complaint: MED REFILL Other details as noted in HPI Comment: All other systems reviewed and negative ED Past Medical Hx - Past Medical History Previous Medical History?: Yes Hx Seizures: Yes Additional medical history: Takes Keppra - Surgical History Past Surgical History?: No - Social History Smoking Status: Current Every Day Smoker - Medications Home Medications: Home Medications Medication Instructions Recorded Confirmed Last Taken Type levETIRAcetam [Keppra TAB] 1,000 mg PO BID #60 tablet 03/26/19 Unknown Rx ED Physical Exam - General Limitations: No Limitations General appearance: alert, in no apparent distress - Head Head exam: Present: atraumatic, normocephalic - Eye Eye exam: Present: normal appearance - ENT ENT exam: Present: mucous membranes moist - Respiratory Respiratory exam: Present: normal lung sounds bilaterally. Absent: respiratory distress, wheezes, rales, rhonchi, stridor, chest wall tenderness, accessory muscle use, decreased breath sounds, prolonged expiratory - Cardiovascular Cardiovascular Exam: Present: normal rhythm, bradycardia (mild), normal heart sounds. Absent: systolic murmur, diastolic murmur, rubs, gallop - Neurological Exam Neurological exam: Present: alert, oriented X3 - Psychiatric Psychiatric exam: Present: normal affect, normal mood - Skin Skin exam: Present: warm, dry, intact ED Course Vital Signs 03/26/19 09:47 Temperature 98.3 F Pulse Rate 52 L Respiratory 20 Rate Blood Pressure 130/60 O2 Sat by Pulse 98 Oximetry ED Recheck MDM - Medical Decision Making Patient is a 23-year-old male who presents emergency room for medication refill. Patient reports that his daughter accidentally dumped out his medications and he does not have anymore. he states that he takes Keppra 1000 milligrams twice a day. he last took his Keppra 2 nights ago. States he has not had a seizure since October. pt states his neurologist in [place] use to prescribe his medications but he moved to [place] and does not have a primary care provider. Patient denies any other medical history or allergies to medications. pt given prescription for his keppra for a 1 month supply. advised pt to please take m edication as prescribed. future refills of your medication will need to come through a primary care doctor or neurologist. Given a list of community resources for you to set up a primary care provider. Return to the emergency room for any new or worsening symptoms. Critical care attestation.: If time is entered above; I have spent that time in minutes in the direct care of this critically ill patient, excluding procedure time. ED Disposition Clinical Impression: Medication refill Disposition: DC-01 TO HOME OR SELFCARE Is pt being admited?: No Does the pt Need Aspirin: No Condition: Stable Additional Instructions: Please take medication as prescribed. future refills of your medication will need to come through a primary care doctor or neurologist. Given a list of community resources for you to set up a primary care provider. Return to the emergency room for any new or worsening symptoms. Prescriptions: levETIRAcetam [Keppra TAB] 1,000 mg PO BID #60 tablet Referrals: [facility] [Provider Group] - 2-3 Days [facility] [Outside] - 2-3 Days [facility] [Outside] - 2-3 Days Time of Disposition: 10:23 Print Language: AMHARIC
== END 2019-03-26 10:39 | disposition home or self-care (01) ==
LOC: ED 09:37
DX: R56.9 Unspecified convulsions (principal); Z76.0 Encounter for issue of repeat prescription; F17.200 Nicotine dependence, unspecified, uncomplicated
CPT/HCPCS: 99282

== ENCOUNTER 2019-05-08 09:51 | Emergency (ER) | payer SELFPAY ==
[2019-05-08 09:58] VITALS: BP 119/65
[2019-05-08] MEDS ORDERED: levETIRAcetam 500 MG TAB PO ONE (11:06)
--- NOTE | 2019-05-08 11:09 | Emergency Department Report ---
ED General Adult HPI - General Chief complaint: Seizure Stated complaint: SEIZURES/HEADACHE/BODY ACHE Time Seen by Provider: 05/08/19 10:53 Source: patient Mode of arrival: Ambulatory Limitations: No Limitations - History of Present Illness Initial comments: The patient presents to the emergency department with a chief complaint of seizures. Patient states he had 2 seizures yesterday. The patient is supposed to take 1000 mg of Keppra twice daily but for the last week he has cut back because he is running short of his medication. Patient denies headache, shortness of breath, or headache. -: Sudden Severity scale (0 -10): 0 Consistency: now resolved Improves with: none Worsens with: none Associated Symptoms: denies other symptoms Treatments Prior to Arrival: none - Related Data Previous Rx's Medication Instructions Recorded Last Taken Type levETIRAcetam [Keppra TAB] 1,000 mg PO BID #60 tablet 03/26/19 Unknown Rx levETIRAcetam [Keppra TAB] 1,000 mg PO BID #60 tab 05/08/19 Unknown Rx Allergies Allergy/AdvReac Type Severity Reaction Status Date / Time No Known Allergies Allergy Verified 12/31/18 17:49 ED Review of Systems ROS: Stated complaint: SEIZURES/HEADACHE/BODY ACHE Other details as noted in HPI Comment: All other systems reviewed and negative Constitutional: denies: chills, fever Eyes: denies: eye pain, eye discharge, vision change ENT: denies: ear pain, throat pain Respiratory: denies: cough, shortness of breath, wheezing Cardiovascular: denies: chest pain, palpitations Endocrine: no symptoms reported Gastrointestinal: denies: abdominal pain, nausea, diarrhea Genitourinary: denies: urgency, dysuria Musculoskeletal: denies: back pain, joint swelling, arthralgia Skin: denies: rash, lesions Neurological: denies: headache, weakness, paresthesias Psychiatric: denies: anxiety, depression Hematological/Lymphatic: denies: easy bleeding, easy bruising ED Past Medical Hx - Past Medical History Previous Medical History?: Yes Hx Seizures: Yes Additional medical history: Takes Keppra - Social History Smoking Status: Current Every Day Smoker Substance Use Type: Marijuana, Prescribed - Medications Home Medications: Home Medications Medication Instructions Recorded Confirmed Last Taken Type levETIRAcetam [Keppra TAB] 1,000 mg PO BID #60 tablet 03/26/19 Unknown Rx levETIRAcetam [Keppra TAB] 1,000 mg PO BID #60 tab 05/08/19 Unknown Rx ED Physical Exam - General Limitations: No Limitations General appearance: alert, in no apparent distress - Head Head exam: Present: atraumatic, normocephalic - Eye Eye exam: Present: normal appearance, PERRL, EOMI - ENT ENT exam: Present: mucous membranes moist - Neck Neck exam: Present: normal inspection - Respiratory Respiratory exam: Present: normal lung sounds bilaterally. Absent: respiratory distress - Cardiovascular Cardiovascular Exam: Present: regular rate, normal rhythm. Absent: systolic murmur, diastolic murmur, rubs, gallop - GI/Abdominal GI/Abdominal exam: Present: soft, normal bowel sounds. Absent: distended, tenderness - Rectal Rectal exam: Present: deferred - Extremities Exam Extremities exam: Present: normal inspection - Back Exam Back exam: Present: normal inspection - Neurological Exam Neurological exam: Present: alert, oriented X3, CN II-XII intact. Absent: motor sensory deficit - Psychiatric Psychiatric exam: Present: normal affect, normal mood - Skin Skin exam: Present: warm, dry, intact, normal color. Absent: rash ED Course Vital Signs 05/08/19 05/08/19 09:52 09:54 Temperature 98.8 F 98.8 F Pulse Rate 98 H 98 H Respiratory 18 18 Rate Blood Pressure 119/65 119/65 O2 Sat by Pulse 99 97 Oximetry ED Medical Decision Making - Medical Decision Making discussed plan of care with patient Critical care attestation.: If time is entered above; I have spent that time in minutes in the direct care of this critically ill patient, excluding procedure time. ED Disposition Clinical Impression: Seizure Disposition: DC-01 TO HOME OR SELFCARE Is pt being admited?: No Does the pt Need Aspirin: No Condition: Stable Instructions: Recurrent Seizures Adult (ED) Additional Instructions: return if worse Prescriptions: levETIRAcetam [Keppra TAB] 1,000 mg PO BID #60 tab Referrals: NADIA WEBSTER MD [Referring] - 3-5 Days Time of Disposition: 11:08
== END 2019-05-08 11:16 | disposition home or self-care (01) ==
LOC: ED 09:51
DX: R56.9 Unspecified convulsions (principal); F17.200 Nicotine dependence, unspecified, uncomplicated; F12.10 Cannabis abuse, uncomplicated

== ENCOUNTER 2019-06-20 11:31 | Emergency (ER) | payer SELFPAY ==
[2019-06-20] MEDS ORDERED: levETIRAcetam 500 MG TAB PO ONE ×2 (13:49→13:50)
[2019-06-20] MEDS ORDERED: LORazepam 2 MG/ML VIAL ONE (13:51)
[2019-06-20] MEDS ORDERED: LORazepam 2 MG/ML VIAL IM ONE (13:52)
--- NOTE | 2019-06-20 14:53 | Emergency Department Report ---
ED General Adult HPI - General Chief complaint: Seizure Stated complaint: SEZUIRES EPISODES Time Seen by Provider: 06/20/19 12:23 Source: patient Mode of arrival: Ambulatory Limitations: No Limitations - History of Present Illness Initial comments: She presents to the emergency department with a chief complaint feeling like he is not to have a seizure. She states she normally takes Keppra twice daily for seizures but has been out for the last 2 days. Patient states she is beginning to feel confused and lightheaded which usually happens prior to having the seizure. Patient denies headache, trauma, chest pain, shortness breath. -: Gradual Severity scale (0 -10): 0 Consistency: constant Improves with: none Worsens with: none Associated Symptoms: denies other symptoms Treatments Prior to Arrival: none - Related Data Previous Rx's Medication Instructions Recorded Last Taken Type levETIRAcetam [Keppra TAB] 1,000 mg PO BID #60 tablet 03/26/19 Unknown Rx levETIRAcetam [Keppra TAB] 1,000 mg PO BID #60 tab 05/08/19 Unknown Rx levETIRAcetam [Keppra TAB] 1,000 mg PO BID #60 tab 06/20/19 Unknown Rx Allergies Allergy/AdvReac Type Severity Reaction Status Date / Time No Known Allergies Allergy Verified 12/31/18 17:49 ED Review of Systems ROS: Stated complaint: SEZUIRES EPISODES Other details as noted in HPI Constitutional: denies: chills, fever Eyes: denies: eye pain, eye discharge, vision change ENT: denies: ear pain, throat pain Respiratory: denies: cough, shortness of breath, wheezing Cardiovascular: denies: chest pain, palpitations Endocrine: no symptoms reported Gastrointestinal: denies: abdominal pain, nausea, diarrhea Genitourinary: denies: urgency, dysuria Musculoskeletal: denies: back pain, joint swelling, arthralgia Skin: denies: rash, lesions Neurological: denies: headache, weakness, paresthesias Psychiatric: denies: anxiety, depression Hematological/Lymphatic: denies: easy bleeding, easy bruising ED Past Medical Hx - Past Medical History Previous Medical History?: Yes Hx Seizures: Yes Additional medical history: Takes Keppra - Surgical History Past Surgical History?: No - Social History Smoking Status: Current Every Day Smoker Substance Use Type: Marijuana - Medications Home Medications: Home Medications Medication Instructions Recorded Confirmed Last Taken Type levETIRAcetam [Keppra TAB] 1,000 mg PO BID #60 tablet 03/26/19 Unknown Rx levETIRAcetam [Keppra TAB] 1,000 mg PO BID #60 tab 05/08/19 Unknown Rx levETIRAcetam [Keppra TAB] 1,000 mg PO BID #60 tab 06/20/19 Unknown Rx ED Physical Exam - General Limitations: No Limitations General appearance: alert, in no apparent distress - Head Head exam: Present: atraumatic, normocephalic - Eye Eye exam: Present: normal appearance, PERRL, EOMI - ENT ENT exam: Present: mucous membranes moist - Neck Neck exam: Present: normal inspection - Respiratory Respiratory exam: Present: normal lung sounds bilaterally. Absent: respiratory distress - Cardiovascular Cardiovascular Exam: Present: regular rate, normal rhythm. Absent: systolic murmur, diastolic murmur, rubs, gallop - GI/Abdominal GI/Abdominal exam: Present: soft, normal bowel sounds. Absent: distended, tenderness - Rectal Rectal exam: Present: deferred - Extremities Exam Extremities exam: Present: normal inspection - Back Exam Back exam: Present: normal inspection - Neurological Exam Neurological exam: Present: alert, oriented X3, CN II-XII intact. Absent: motor sensory deficit - Psychiatric Psychiatric exam: Present: normal affect, normal mood - Skin Skin exam: Present: warm, dry, intact, normal color. Absent: rash ED Course Vital Signs 06/20/19 12:30 Temperature 98.3 F Pulse Rate 61 Respiratory 20 Rate Blood Pressure 139/62 [Left] O2 Sat by Pulse 99 Oximetry ED Medical Decision Making - Medical Decision Making Patient was given IM Ativan and 1500 mg of Keppra Critical care attestation.: If time is entered above; I have spent that time in minutes in the direct care of this critically ill patient, excluding procedure time. ED Disposition Clinical Impression: Seizure Disposition: DC-01 TO HOME OR SELFCARE Is pt being admited?: No Does the pt Need Aspirin: No Condition: Stable Instructions: Recurrent Seizures Adult (ED) Additional Instructions: return if worse Prescriptions: levETIRAcetam [Keppra TAB] 1,000 mg PO BID #60 tab Referrals: [facility], [Provider Group] - 3-5 Days [facility] [Provider Group] - 3-5 Days Time of Disposition: 14:52
[2019-06-20 15:57] VITALS: BP 130/65
== END 2019-06-20 15:10 | disposition home or self-care (01) ==
LOC: ED 11:31
DX: R56.9 Unspecified convulsions (principal); F17.200 Nicotine dependence, unspecified, uncomplicated; F12.10 Cannabis abuse, uncomplicated; Z79.899 Other long term (current) drug therapy
CPT/HCPCS: 96372; 99282; J2060

== ENCOUNTER 2020-01-25 11:26 | Outpatient (CLI) | payer MEDICAID ==
[2020-01-25 12:01] LABS: Basophils % (Auto) 0.8 % (0.0-1.8); Eosinophils # (Auto) 0.1 K/mm3 (0.0-0.4); Eosinophils % (Auto) 1.4 % (0.0-4.3); Hematocrit 45.1 % (35.5-45.6); Lymphocytes # (Auto) 1.5 K/mm3 (1.2-5.4); Mean Corpuscular HGB Conc 33 % (32-34); Mean Corpuscular Volume 94 fl (84-94); Monocytes # (Auto) 0.7 K/mm3 (0.0-0.8); Monocytes % (Auto) 15.2 % (0.0-7.3); Platelet Count 286 K/mm3 (140-440); Red Blood Count 4.83 M/mm3 (3.65-5.03); Red Cell Distribution Width 13.6 % (13.2-15.2)
[2020-01-25 12:06] LABS: Alanine Aminotransferase 37 units/L (7-56); Albumin 5.3 g/dL (3.9-5); BUN/Creatinine Ratio 12; Blood Urea Nitrogen 13 mg/dL (9-20); Chol/HDL Ratio 2.17 %; HDL Cholesterol 105 mg/dL (40-59); Hemolysis Index 6; LDL Cholesterol,Direct 119 mg/dL (50-130)
== END 2020-01-25 11:27 | disposition home or self-care (01) ==
LOC: LAB 11:26
PROVIDERS: ATTEND Internal Medicine
DX: Z00.00 Encounter for general adult medical examination without abnormal findings (principal); Z13.29 Encounter for screening for other suspected endocrine disorder; Z13.220 Encounter for screening for lipoid disorders; Z13.21 Encounter for screening for nutritional disorder
CPT/HCPCS: 36415; 80053; 80061; 82306; 82607; 83036; 84443; 85025

== ENCOUNTER 2021-02-09 20:38 | Emergency (ER) | payer MEDICAID ==
[2021-02-09 21:05] VITALS: BP 132/81
[2021-02-09 22:18] LABS: Hemoglobin 13.3 gm/dl (11.8-15.2); Mean Corpuscular HGB Conc 34 % (32-34); Mean Corpuscular Volume 92 fl (84-94); Platelet Count 288 K/mm3 (140-440); Red Blood Count 4.22 M/mm3 (3.65-5.03); Red Cell Distribution Width 13.3 % (13.2-15.2)
[2021-02-09 22:31] LABS: BUN/Creatinine Ratio 14; Blood Urea Nitrogen 14 mg/dL (9-20); Calcium 9.7 mg/dL (8.4-10.2); Hemolysis Index 8
[2021-02-10 02:14] LABS: Alanine Aminotransferase 30 units/L (7-56); Albumin 4.8 g/dL (3.9-5)
[2021-02-10 02:15] LABS: Bilirubin,Direct < 0.2 mg/dL (0-0.2)
--- NOTE | 2021-02-10 03:06 | Emergency Department Report ---
ED Seizure HPI - General Chief Complaint: Seizure Stated Complaint: SEIZURE/BAD HEADACHE Source: patient Mode of arrival: Ambulatory Limitations: No Limitations - History of Present Illness Initial Comments: Patient is a 25-year-old -[place] male with history of chronic seizures and who is currently taking Keppra 1000 mg twice daily presents to the ED with complaint of seizure-like activity at home prior to arrival in the ED. Patient states that he takes his medications daily with no failure and is unsure as to whether he had a seizure but he states that he was told by his family member that he had had a seizures. Patient denies dizziness, syncope, nausea and vo miting, chest pain, shortness of breath, fever, chills, nasal and sinus congestion, abdominal pain, diarrhea, change in vision, headache, neck pain or back pain. MD Complaint: possible seizure, other (Chronic seizure history, on Keppra) -: Sudden, hour(s) (2) Description of Episode: other (Postictal on arrival in the ED) -: second(s) Witnessed:: Yes Trauma: No Seizure History: known seizure disorder Place: home Possible Precipitating Event: none Associated Symptoms: denies other symptoms. denies: chest pain, confusion, cough, diaphoresis, fever/chills, loss of appetite, malaise, rash, shortness of breath, syncope, weakness, tongue injury, shoulder dislocation, other Treatments Prior to Arrival: none - Related Data Previous Rx's Medication Instructions Recorded Last Taken Type levETIRAcetam [Keppra TAB] 1,000 mg PO BID #60 tablet 03/26/19 Unknown Rx levETIRAcetam [Keppra TAB] 1,000 mg PO BID #60 tab 05/08/19 Unknown Rx levETIRAcetam [Keppra TAB] 1,000 mg PO BID #60 tab 11/12/19 Unknown Rx levETIRAcetam [Keppra TAB] 1,000 mg PO BID #60 tab 12/21/19 Unknown Rx Allergies Allergy/AdvReac Type Severity Reaction Status Date / Time No Known Allergies Allergy Verified 12/21/19 16:42 ED Review of Systems ROS: Stated complaint: SEIZURE/BAD HEADACHE Other details as noted in HPI Constitutional: denies: chills, fever Eyes: denies: eye pain, eye discharge, vision change ENT: denies: ear pain, throat pain Respiratory: denies: cough, shortness of breath, wheezing Cardiovascular: denies: chest pain, palpitations Endocrine: no symptoms reported Gastrointestinal: denies: abdominal pain, nausea, diarrhea Genitourinary: denies: urgency, dysuria Musculoskeletal: denies: back pain, joint swelling, arthralgia Skin: denies: rash, lesions Neurological: other (Seizure). denies: headache, weakness, paresthesias Psychiatric: denies: anxiety, depression Hematological/Lymphatic: denies: easy bleeding, easy bruising ED Past Medical Hx - Past Medical History Previous Medical History?: Yes Hx Seizures: Yes Additional medical history: Takes Keppra - Surgical History Past Surgical History?: No - Social History Smoking Status: Never Smoker Substance Use Type: None - Medications Home Medications: Home Medications Medication Instructions Recorded Confirmed Last Taken Type levETIRAcetam [Keppra TAB] 1,000 mg PO BID #60 tablet 03/26/19 Unknown Rx levETIRAcetam [Keppra TAB] 1,000 mg PO BID #60 tab 05/08/19 Unknown Rx levETIRAcetam [Keppra TAB] 1,000 mg PO BID #60 tab 11/12/19 Unknown Rx levETIRAcetam [Keppra TAB] 1,000 mg PO BID #60 tab 12/21/19 Unknown Rx ED Physical Exam - General Limitations: No Limitations General appearance: alert, in no apparent distress, anxious - Head Head exam: Present: atraumatic, normocephalic, normal inspection - Eye Eye exam: Present: normal appearance, PERRL, EOMI Pupils: Present: normal accommodation - ENT ENT exam: Present: normal exam, normal orophraynx, mucous membranes moist, TM's normal bilaterally, normal external ear exam - Neck Neck exam: Present: normal inspection, full ROM - Respiratory Respiratory exam: Present: normal lung sounds bilaterally. Absent: respiratory distress, wheezes, rales, rhonchi, chest wall tenderness, accessory muscle use, decreased breath sounds, prolonged expiratory - Cardiovascular Cardiovascular Exam: Present: normal rhythm, bradycardia, normal heart sounds. Absent: systolic murmur, diastolic murmur, rubs, gallop - GI/Abdominal GI/Abdominal exam: Present: soft, normal bowel sounds. Absent: tenderness, guarding, rebound, hyperactive bowel sounds, hypoactive bowel sounds, organomegaly - Extremities Exam Extremities exam: Present: normal inspection, full ROM, normal capillary refill - Back Exam Back exam: Present: normal inspection, full ROM. Absent: tenderness, CVA tenderness (R), CVA tenderness (L), muscle spasm, paraspinal tenderness, vertebral tenderness - Neurological Exam Neurological exam: Present: alert, oriented X3, CN II-XII intact, normal gait, reflexes normal - Psychiatric Psychiatric exam: Present: normal affect, normal mood, anxious - Skin Skin exam: Present: warm, dry, intact, normal color. Absent: rash ED Course Vital Signs 02/09/21 21:05 Temperature 98.2 F Pulse Rate 57 L Respiratory 16 Rate Blood Pressure 132/81 [Right] O2 Sat by Pulse 100 Oximetry ED Medical Decision Making - Lab Data Result diagrams: 02/09/21 21:11 02/09/21 21:11 - Medical Decision Making This is a 25-year-old -[place] male with history of chronic seizures and who is currently taking Keppra presents to the ED with complaint of seizure- like activity at home prior to arrival in the ED. Patient states that he takes his medications daily with no failure and is unsure as to whether he had a seizure but he states that he was told by his family member that he had had a seizures. In the ED, patient is alert and oriented x3 and is not in any distress. Lab test results were reviewed and are all nonactionable. Patient states that he has prescribed Keppra medications at home that he takes every day for his chronic seizure. Patient has no visible injuries and is alert and oriented x3, fully ambulatory in the ED and having been in the ED for a total of 6 hours with no observable seizure episodes, patient was discharged home and advised to continue taking his previously prescribed medications, Keppra 1000mg Q12H and to follow-up with his primary care physician in 2 to 3 days for reevaluation. Patient is advised to return to the ED immediately if symptoms get worse. - Differential Diagnosis Seizure; syncope; dizziness; anxiety Critical care attestation.: If time is entered above; I have spent that time in minutes in the direct care of this critically ill patient, excluding procedure time. ED Disposition Clinical Impression: Seizure disorder Disposition: DC-01 TO HOME OR SELFCARE Is pt being admited?: No Does the pt Need Aspirin: No Condition: Stable Instructions: Seizure, Adult, [id number] Additional Instructions: All lab test results were reviewed and are all nonactionable. Continue taking the previously prescribed Keppra and follow-up with your primary care physician in 2 to 3 days for reevaluation. Return to the ED immediately if symptoms get worse. Referrals: VIRIDIANA CLEMONS MD [Staff Physician] - 3-5 Days Forms: Work/School Release Form(ED) Time of Disposition: 03:06 Print Language: PALAUAN
== END 2021-02-09 21:05 | disposition home or self-care (01) ==
LOC: ED 20:38
DX: G40.909 Epilepsy, unspecified, not intractable, without status epilepticus (principal)
CPT/HCPCS: 36415; 80048; 80076; 80320; 83735; 85027; 99283; G0480